=== PATIENT | female | born 1975 | race Caucasian/White ===

== ENCOUNTER 2019-02-12 16:48 | Inpatient (IN) | payer MEDICAID ==
[~2019-02-12] VITALS: Ht 162.6 cm; Wt 68.0 kg
[2019-02-12 16:48] VITALS: BP 126/71
--- NOTE | 2019-02-12 16:48 | NUR ---
PT MERCEDES BLS TO ER BED 08
[2019-02-12] MEDS ORDERED: NACL 0.9% 1,000 ML IV ONE ×2 (17:00→17:55)
[2019-02-12] MEDS ORDERED: ONDANSETRON 4 MG/2 ML VIAL IVP ONE (17:00)
[2019-02-12 17:22] LABS: BASOPHILS % (AUTO) 0.4 % (0.0-2.0); EOSINOPHILS % (AUTO) 0.7 % (0.0-4.0); HEMATOCRIT 32.3 % (36-48); HEMOGLOBIN 10.2 g/dL (12.0-16.0); LYMPHOCYTES # (AUTO) 2.4 K/uL (2.5-16.5); LYMPHOCYTES % (AUTO) 41.4 % (20.5-51.1); MEAN CORPUSCULAR HEMOGLOBIN 27 pg (27-31); MEAN CORPUSCULAR HGB CONC 32 g/dL (33-37); MEAN CORPUSCULAR VOLUME 86.5 fL (80-94); MONOCYTES # (AUTO) 0.2 K/uL (0.8-1.0); MONOCYTES % (AUTO) 3.7 % (1.7-9.3); NEUTROPHILS # (AUTO) 3.1 K/uL (1.8-7.7); NEUTROPHILS % (AUTO) 53.8 % (42.2-75.2); PLATELET COUNT (AUTO) 278 K/uL (140-450); RED BLOOD CELL COUNT(AUTO) 3.73 MIL/uL (4.20-5.40); RED CELL DISTRIBUTION WIDTH 21.8 % (11.6-13.7); WHITE BLOOD COUNT (AUTO) 5.8 K/uL (4.8-10.8)
--- NOTE | 2019-02-12 17:25 | NUR ---
PT BIB AMBULANCE FOR ETOH INTOXICATION. PT WAS FOUND OUTSIDE THE [facility]. STATES SHE HAS BEEN DRINKING ALL DAY, STARTED WITH WINE AND VODKA, THEN BEER. PT STATES SHE IS NAUSEOUS, GENERALIZED ABD PAIN. PT RESTING WITH EYES CLOSED IN BED. PT SAYS SHE HAS BEEN DRINKING FOR MONTHS BECAUSE SHE "DOESNT LIKE HER LIFE". NO SUICIDAL IDEATION AT THIS TIME. EVEN AND UNLABORED RESPIRATIONS. VSS MEDHX: HTN RX: LISINOPRIL ALLERGIES: VICODIN
[2019-02-12 17:36] LABS: ANION GAP 13.3 (8-16); CARBON DIOXIDE 26.5 mmol/L (21-32); CREATININE 0.7 mg/dL (0.6-1.3); POTASSIUM 3.8 mmol/L (3.5-5.1)
[2019-02-12 17:44] LABS: ALBUMIN 2.5 g/dL (3.4-5.0); TOTAL BILIRUBIN 0.3 mg/dL (0.0-1.0)
[2019-02-12 17:58] LABS: APPEARANCE,URINE CLEAR (CLEAR); BILIRUBIN,URINE NEGATIVE (NEGATIVE); BLOOD, URINE NEGATIVE (NEGATIVE); COLOR,URINE YELLOW (YELLOW); LEUKOCYTE ESTERASE ,URINE NEGATIVE (NEGATIVE); NITRITE, URINE NEGATIVE (NEGATIVE); UGLUCOSE NEGATIVE (NEGATIVE)
--- NOTE | 2019-02-12 18:08 | NUR ---
pt resting in bed with eyes closed at this time. vss.
[2019-02-12 18:16] LABS: BARBITURATE, URINE NEGATIVE ng/ml (NEG <=200); BENZODIAZEPINE, URINE NEGATIVE ng/mL (NEG <=200); CANNABINOID, URINE NEGATIVE ng/mL (NEG <=50); COCAINE, URINE NEGATIVE ng/mL (NEG <=300); OPIATE, URINE NEGATIVE ng/mL (NEG <=2000); PHENCYCLIDINE SCREEN,URINE NEGATIVE ng/mL (NEG <=25)
[2019-02-12] MEDS ORDERED: LORazepam 2 MG/ML VIAL IVP PRN (19:15)
[2019-02-12] MEDS ORDERED: ONDANSETRON 4 MG/2 ML VIAL IVP PRN (19:15)
--- NOTE | 2019-02-12 19:20 | NUR ---
Patient will be admitted to care of DR STOCKTON. Admited to [facility]. Will go to room 107B. Belongings list completed. Report to MAXIM BELLO.
--- NOTE | 2019-02-12 19:25 | NUR ---
RECEIVED FROM ER PER EMILIE WU AND MARGARET. ABLE TO VERBALIZE NEEDS WELL IN ROMANIAN. PT. AT THIS TIME CAN VERBALIZE NEEDS WELL. IVF SITE TO LEFT HAND # 20. INTACT AND NO INFILTRATION. WITH GOOD BLOOD RETURN. ROM X 4. SKIN INTACT. CAR PLANS FOR THE NIGHT DISCUSSED WITH HER. CALL LIGHT WITH IN REACH. ROM X 4. SEEN WALK INDEPENDENTLY FROM BED AT THE DOOR TO BED B IN HER ROOM. ORIENTED TO CALL LIGHT USE AND ROOM.
[2019-02-12 20:07] LABS: FREE T4 (FREE THYROXINE) 0.86 ng/dL (0.76-1.46); MAGNESIUM 1.6 mg/dL (1.8-2.4); PHOSPHORUS 4.6 mg/dL (2.5-4.9); THYROID STIMULATING HORMONE 1.03 uIU/mL (0.34-3.74)
[2019-02-12] MEDS: DOCUSATE SODIUM 100 MG GELCAP PO SCH (21:28)
--- NOTE | 2019-02-12 21:39 | NUR ---
CXR TECH IN HERE AND ASSISTED BY A FEMALE NOCTURNIST. NO COMPLAINTS DONE. CALL LIGHT WITH IN REACH.
[2019-02-12 21:45] VITALS: BP 98/78
[2019-02-12] MEDS ORDERED: MAG SULF 2000 MG/WATER PREMIX 100 ML IV SCH (23:00)
[2019-02-12] MEDS ORDERED: cefTRIAXone 1,000 MG VIAL ONE (23:43)
[2019-02-12] MEDS: NACL 0.9% 1,000 ML IV SCH (23:50)
--- NOTE | 2019-02-13 00:11 | NUR ---
PT. SLEEPING WELL. NO COMPLAINTS DONE. WAKES UP EASILY WHEN TOUCHED OR CALLED BY NAME. VERBALIZES NEEDS WELL. NO NOTED ADVERSE REACTION TO ROCEPHIN 1 GM IVP INFUSING.
[2019-02-13 00:20] VITALS: BP 116/72
--- NOTE | 2019-02-13 01:51 | NUR ---
SLEEPING WELL. BED ALARM ON. CALL LIGHT WITH IN REACH.
--- NOTE | 2019-02-13 03:50 | NUR ---
SECOND BAG OF MAGNESIUM SULFATE 2 GM INFUSING ORDERED FOR TOTAL OF 4GMS. CHARGE NURSE AWARE.
--- NOTE | 2019-02-13 06:18 | NUR ---
PT. SLEEPING AT THIS TIME. NO COMPLAINTS DONE THIS SHIFT. NO TREMORS NOTED FROM ALCOHOL INTAKE. NO ALLERGIC REACTIONS FROM IV ABT ADMINISTERED. ABLE TO VERBALIZE NEEDS WELL. ROM X 4. SEEN WALKING TO RESTROOM WELL. STANDBY ASSIST BY SENIOR WEB ENGINEER. WILL ENDORSE TO AM RN FOR CONTINUITY OF CARE.
[2019-02-13 07:06] LABS: BASOPHILS % (AUTO) 0.5 % (0.0-2.0); EOSINOPHILS % (AUTO) 0.8 % (0.0-4.0); HEMATOCRIT 29.7 % (36-48); HEMOGLOBIN 9.5 g/dL (12.0-16.0); LYMPHOCYTES # (AUTO) 1.4 K/uL (2.5-16.5); LYMPHOCYTES % (AUTO) 26.1 % (20.5-51.1); MEAN CORPUSCULAR HEMOGLOBIN 28 pg (27-31); MEAN CORPUSCULAR HGB CONC 32 g/dL (33-37); MEAN CORPUSCULAR VOLUME 86.2 fL (80-94); MONOCYTES # (AUTO) 0.3 K/uL (0.8-1.0); MONOCYTES % (AUTO) 4.9 % (1.7-9.3); NEUTROPHILS # (AUTO) 3.7 K/uL (1.8-7.7); NEUTROPHILS % (AUTO) 67.7 % (42.2-75.2); PLATELET COUNT (AUTO) 208 K/uL (140-450); RED BLOOD CELL COUNT(AUTO) 3.45 MIL/uL (4.20-5.40); RED CELL DISTRIBUTION WIDTH 21.3 % (11.6-13.7); WHITE BLOOD COUNT (AUTO) 5.4 K/uL (4.8-10.8)
[2019-02-13 07:07] LABS: ANION GAP 12.6 (8-16); CARBON DIOXIDE 25.9 mmol/L (21-32); CREATININE 0.5 mg/dL (0.6-1.3); POTASSIUM 3.5 mmol/L (3.5-5.1)
--- NOTE | 2019-02-13 07:20 | NUR ---
RECEIVED REPORT FROM GRANTS ADMINISTRATOR NURSE AT BEDSIDE FOR CONTINUITY OF CARE. PATIENT AOX4, ABLE TO VERBALIZE NEEDS WELL IN URDU, AMBULATES ON STEADY GAIT. IV SITE TO LEFT HAND # 20, INTACT, ASYMPTOMATIC, AND PATENT, INFUSING IVF WELL. SKIN INTACT. PATIENT DENIES PAIN, RESPIRATIONS EVEN AND UNLABORED ON ROOM AIR. UPDATED BOARD. CARE PLANS DISCUSSED WITH PATIENT, SHE VERBALIZED UNDERSTANDING. CALL LIGHT WITH IN REACH. WILL CONTINUE TO MONITOR PATIENT.
[2019-02-13 07:36] LABS: MAGNESIUM 2.1 mg/dL (1.8-2.4); PHOSPHORUS 2.8 mg/dL (2.5-4.9)
[2019-02-13] MEDS: DOCUSATE SODIUM 100 MG GELCAP PO SCH ×2 (08:40→21:41)
[2019-02-13] MEDS: THIAMINE 100 MG TAB PO SCH (08:41)
[2019-02-13] MEDS: MULTIVITAMIN 1 TAB PO SCH (08:41)
[2019-02-13] MEDS: FOLIC ACID 1 MG TAB PO SCH (08:41)
[2019-02-13] MEDS: chlordiazePOXIDE 25 MG CAP PO SCH ×3 (08:41→17:12)
--- NOTE | 2019-02-13 08:49 | NUR ---
ORDERED MEDICATIONS GIVEN. PATIENT TOLERATED THEM WELL. PATIENT REFUSING COLACE AT THE MOMENT, STATED SHE HAD BM EARLY THIS MORNING. EDUCATED HER ABOUT INDICATIONS AND BENEFITS, PATIENT VERBALIZED UNDERSTANDING BUT REITERATED HER REFUSAL. PATIENT AMBULATED ON STEADY GAIT TO BATHROOM AND BACK TO BED. ALL NEEDS MET AT THIS TIME. CALL LIGHT WITHIN REACH, WILL CONTINUE TO MONITOR PATIENT.
[2019-02-13] MEDS ORDERED: MULTIVITAMIN-12 10 ML, THIAMINE 100 MG, MAGNESIUM SULFATE 50% 2,000 MG, FOLIC ACID 1 MG... IV SCH ×5 (09:00)
--- NOTE | 2019-02-13 09:15 | NUR ---
PT C/O OF NAUSEA, OFFERED HER ZOFRAN PRN. SHE REFUSED, STATING "NOT AT THIS TIME". RN VERBALIZED UNDERSTANDING. ALL NEEDS MET AT THIS TIME. CALL LIGHT WITHIN REACH. WILL CONTINUE TO MONITOR PATIENT.
[2019-02-13 10:01] LABS: CHOL/HDL RATIO 2.6 (1-4.5)
--- NOTE | 2019-02-13 12:28 | NUR ---
ORDERED MEDICATION GIVEN. PATIENT TOLERATED IT WELL. PATIENT CURRENTLY SITTING UP IN BED EATING LUNCH, NO COMPLAINTS AT THIS TIME. PATIENT STATE'S NAUSEA IS "BETTER THAN THIS MORNING". CALL LIGHT WITHIN REACH, WILL CONTINUE TO MONITOR PATIENT.
--- NOTE | 2019-02-13 14:05 | NUR ---
PATIENT RESTING IN BED, NO COMPLAINTS AT THIS TIME. WILL CONTINUE TO MONITOR PATIENT.
[2019-02-13] MEDS: NACL 0.9% 1,000 ML IV SCH (16:00)
--- NOTE | 2019-02-13 16:24 | NUR ---
SW attempted to follow up with patient. Patient was asleep and did not answer to verbal stimuli. SW will follow up with patient.
[2019-02-13 19:18] VITALS: BP 110/75
--- NOTE | 2019-02-13 19:30 | NUR ---
PATIENT REPORT GIVEN TO AD TAKER NURSE AT BEDSIDE FOR CONTINUITY OF CARE. PATIENT IN STABLE CONDITION.
--- NOTE | 2019-02-13 19:31 | NUR ---
RECD. RESTING IN BED, AWAKE, A/OX4. RESPIRATION EVEN AND UNLABORED. IV OF NS INFUSING AT 100 ML/HR, LEFT HAND G20. WATCHING TV. INDEPENDENT, AMBULATORY TO THE . PLAN OF CARE FOR THE SHIFT DISCUSSED. VERBALIZED UNDERSTANDING. DENIES PAIN 0/10.
--- NOTE | 2019-02-13 21:45 | NUR ---
REVIEWED PLAN OF CARE WITH MARILIN ALVARADO LVN.
--- NOTE | 2019-02-13 21:50 | NUR ---
SITTING ON BED, SNACK GIVEN REQUESTED.
--- NOTE | 2019-02-14 | NUR ---
SLEEPING COMFORTABLY IN BED.
[2019-02-14] MEDS: NACL 0.9% 1,000 ML IV SCH ×3 (02:00→11:36)
[2019-02-14 03:18] VITALS: BP 112/61
--- NOTE | 2019-02-14 04:00 | NUR ---
VS STABLE. NO COMPLAINT OF PAIN 0/10.
--- NOTE | 2019-02-14 06:00 | NUR ---
STILL SLEEPING IN BED, NO DISTRESS NOTED.
[2019-02-14 07:13] LABS: ANION GAP 9.1 (8-16); CARBON DIOXIDE 27.4 mmol/L (21-32); CREATININE 0.5 mg/dL (0.6-1.3); POTASSIUM 3.5 mmol/L (3.5-5.1)
--- NOTE | 2019-02-14 07:20 | NUR ---
CONDITION REMAIN STABLE. ENDORSED TO AM SHIFT NURSE FOR CONTINUITY OF CARE.
--- NOTE | 2019-02-14 08:08 | NUR ---
RECEIVED BED SIDE REPORT FROM BODY ARTIST RN. PT STABLE, A/O X4, VS STABLE. PT STATES SHE FEELS SHAKY, WILL GIVE LIBRIUM SCHEDULED NOW. LEFT HAND 20G RUNNING NS AT 100CC/HR. SKIN INTACT. LAST BM YESTERDAY. PT STATES SHE HAS 4/10 DULL ABDOMINAL PAIN. PT REFUSED PAIN MEDS AT THIS TIME. CALL LIGHT WITHIN REACH, WILL CONTINUE TO MONITOR.
[2019-02-14] MEDS: THIAMINE 100 MG TAB PO SCH (08:27)
[2019-02-14] MEDS: chlordiazePOXIDE 25 MG CAP PO SCH ×3 (08:27→16:15)
[2019-02-14] MEDS: FOLIC ACID 1 MG TAB PO SCH (08:27)
[2019-02-14] MEDS: MULTIVITAMIN 1 TAB PO SCH (08:28)
[2019-02-14] MEDS: DOCUSATE SODIUM 100 MG GELCAP PO SCH ×2 (08:28→21:08)
[2019-02-14 09:01] LABS: BASOPHILS % (AUTO) 0.4 % (0.0-2.0); EOSINOPHILS # (AUTO) 0.1 K/uL (0-0.4); EOSINOPHILS % (AUTO) 1.5 % (0.0-4.0); HEMATOCRIT 29.5 % (36-48); HEMOGLOBIN 9.3 g/dL (12.0-16.0); LYMPHOCYTES # (AUTO) 1.7 K/uL (2.5-16.5); LYMPHOCYTES % (AUTO) 46.8 % (20.5-51.1); MEAN CORPUSCULAR HEMOGLOBIN 28 pg (27-31); MEAN CORPUSCULAR HGB CONC 31 g/dL (33-37); MEAN CORPUSCULAR VOLUME 87.7 fL (80-94); MONOCYTES # (AUTO) 0.2 K/uL (0.8-1.0); MONOCYTES % (AUTO) 4.3 % (1.7-9.3); NEUTROPHILS # (AUTO) 1.7 K/uL (1.8-7.7); PLATELET COUNT (AUTO) 188 K/uL (140-450); RED BLOOD CELL COUNT(AUTO) 3.36 MIL/uL (4.20-5.40); WHITE BLOOD COUNT (AUTO) 3.6 K/uL (4.8-10.8)
--- NOTE | 2019-02-14 09:01 | NUR ---
PATIENT HAS BEEN SCREENED AND CATEGORIZED LOW NUTRITION RISK. PATIENT WILL BE SEEN WITHIN 7 DAYS OF ADMISSION. 02/19/[address]
--- NOTE | 2019-02-14 11:27 | NUR ---
PT STABLE, APPEARS IN NO DISTRESS, WILL CONTINUE TO MONITOR.
--- NOTE | 2019-02-14 12:26 | NUR ---
Discharge Planning: SW was contacted by patient's RN Mary Beth. Mary Beth stated that patient requested to see SW. SW met with patient to discuss substance use resources and homeless resources that patient has followed up with. Patient stated that she was unsuccessful finding local resources. Patient stated that a possible solution would be to return to [place] where she is from. Patient stated that she was previously receiving alcohol rehabilitation services from [facility] @ [address] [place] [address]. Patient stated that if she returns to [place], she will have adequate support systems in place and would be able to continue treatment for her alcohol use. FATMATA informed patient that SW will see if transportation to [place] is possible and will follow up with her after consulting with Rotary Drier Feeder Maria Luz. Addendum: 02/14/19 at 1626 by Sb Shelby SS FATMATA consulted with Drain Tile Press Operator Amber and Psych Specialist Aileen. A [employer]ler [employer] ticket was booked for patient from [place] to [place] along with a taxi voucher to [employer]. FATMATA provided Charge Nurse Karla lawler [employer] ticket. FATMATA informed patient and Dr. Chapin. Dr. Chapin stated that tentative discharge time would be at 9:00am. Patient verbalized appreciation and understanding. FATMATA/CM will follow up as needed.
[2019-02-14 13:53] LABS: BARBITURATE, URINE NEG. ng/ml (NEG <=200); BENZODIAZEPINE, URINE POS. ng/mL (NEG <=200); CANNABINOID, URINE NEG. ng/mL (NEG <=50); COCAINE, URINE NEG. ng/mL (NEG <=300); OPIATE, URINE NEG. ng/mL (NEG <=2000); PHENCYCLIDINE SCREEN,URINE NEG. ng/mL (NEG <=25)
[2019-02-14 15:29] VITALS: BP 124/70
--- NOTE | 2019-02-14 15:41 | NUR ---
PT AMBULATED TO TAKE SHOWER. PT STABLE.
--- NOTE | 2019-02-14 19:18 | NUR ---
GAVE BED SIDE REPORT TO VASCULAR NEUROLOGIST RN. PT STABLE.
--- NOTE | 2019-02-14 19:20 | NUR ---
RECEIVED FROM AM RN IN BED AND SLEEPING AT THIS TIME. PT. ABLE TO VERBALIZE NEEDS WELL IN NAMIBIAN WHEN AWAKE. FOR D/C PLANNING TOMORROW . DX. OF TOXIC ENCEPHALOPATHY. CALL LIGHT WITH IN REACH.
--- NOTE | 2019-02-14 22:35 | NUR ---
PT. AWAKE AND REQUESTED FOR SNACK. PROVIDED WITH JUICE AND SANDWICH. ABLE TO VERBALIZE NEEDS WELL. NO SOB. NO PAIN COMPLAINTS DONE.
[2019-02-15 00:40] VITALS: BP 118/70
--- NOTE | 2019-02-15 00:42 | NUR ---
PT. NO COMPLAINTS . SLEEPING WELL. CALL LIGHT WITH IN REACH. INDEPENDENT WHEN AMBULATING.
[2019-02-15] MEDS: NACL 0.9% 1,000 ML IV SCH (01:13)
[2019-02-15 07:00] LABS: BASOPHILS % (AUTO) 0.4 % (0.0-2.0); EOSINOPHILS # (AUTO) 0.1 K/uL (0-0.4); EOSINOPHILS % (AUTO) 1.3 % (0.0-4.0); HEMATOCRIT 30.6 % (36-48); HEMOGLOBIN 9.8 g/dL (12.0-16.0); LYMPHOCYTES # (AUTO) 1.5 K/uL (2.5-16.5); LYMPHOCYTES % (AUTO) 34.3 % (20.5-51.1); MEAN CORPUSCULAR HEMOGLOBIN 28 pg (27-31); MEAN CORPUSCULAR HGB CONC 32 g/dL (33-37); MEAN CORPUSCULAR VOLUME 86.6 fL (80-94); MONOCYTES # (AUTO) 0.2 K/uL (0.8-1.0); MONOCYTES % (AUTO) 5.2 % (1.7-9.3); NEUTROPHILS # (AUTO) 2.5 K/uL (1.8-7.7); NEUTROPHILS % (AUTO) 58.8 % (42.2-75.2); PLATELET COUNT (AUTO) 212 K/uL (140-450); RED BLOOD CELL COUNT(AUTO) 3.53 MIL/uL (4.20-5.40); WHITE BLOOD COUNT (AUTO) 4.3 K/uL (4.8-10.8)
--- NOTE | 2019-02-15 07:09 | NUR ---
ENDORSED TO THE NEXT RN FOR CONTINUITY OF CARE AWAKE AND ALERT. NO COMPLAINTS DONE.
--- NOTE | 2019-02-15 07:10 | NUR ---
PT RECEIVED FROM NIGHT RNMAXIM. PT IN BED AAOX4. NO SIGNS OF ACUTE DISTRESS AT THIS TIME. WILL CONTINUE CARE
[2019-02-15 07:18] LABS: ANION GAP 10.7 (8-16); CARBON DIOXIDE 28.2 mmol/L (21-32); CREATININE 0.5 mg/dL (0.6-1.3); POTASSIUM 3.9 mmol/L (3.5-5.1)
[2019-02-15 08:00] VITALS: BP 115/65
[2019-02-15] MEDS: MULTIVITAMIN 1 TAB PO SCH (08:11)
[2019-02-15] MEDS: THIAMINE 100 MG TAB PO SCH (08:11)
[2019-02-15] MEDS: DOCUSATE SODIUM 100 MG GELCAP PO SCH (08:12)
[2019-02-15] MEDS: FOLIC ACID 1 MG TAB PO SCH (08:12)
--- NOTE | 2019-02-15 08:15 | NUR ---
PT RECEIVED MORNING MEDICATIONS AND INFORMED OF PENDING DISCHARGE.
[2019-02-15 08:39] VITALS: BP 115/65
[2019-02-15] MEDS ORDERED: chlordiazePOXIDE 25 MG CAP PO SCH (09:00)
--- NOTE | 2019-02-15 10:00 | NUR ---
PT RECEIVED DISCHARGE INSTRUCTIONS WITH DISCHARGE PACKED. PT VERBALIZED UNDERSTANDING REGARDING NOT DRINKING ALCOHOL AND FOLLOW UP WITH PCP WITHIN 5-7 DAYS AFTER DISCHARGE. 22G IV TO L WRIST REMOVED, CATHETER INTACT. PT WALKED OFF UNIT WITH FRIEND TO TAXI. TAXI VOUCHER GIVEN TO ADMISSIONS GATE ATTENDANT. PT RECEIVED TWO BUS VOUCHERS TO GET HOME TO [facility], PAPER COPIES IN PAPER CHART. PT STABLE AND ALERT AND ORIENTED AT DISCHARGE.
== END 2019-02-15 10:00 | disposition home or self-care (01) | DRG 816 ==
LOC: MED 16:48 → MTU 18:53
PROVIDERS: ADMIT General Practice; ATTEND General Practice
DX: T51.0X1A Toxic effect of ethanol, accidental (unintentional), initial encounter (principal); E43 Unspecified severe protein-calorie malnutrition; G92 Toxic encephalopathy; K76.0 Fatty (change of) liver, not elsewhere classified; E86.0 Dehydration; F10.129 Alcohol abuse with intoxication, unspecified; E83.42 Hypomagnesemia; E88.09 Other disorders of plasma-protein metabolism, not elsewhere classified; Y90.8 Blood alcohol level of 240 mg/100 ml or more; I10 Essential (primary) hypertension; D64.9 Anemia, unspecified; D72.819 Decreased white blood cell count, unspecified; N39.0 Urinary tract infection, site not specified; Z88.8 Allergy status to other drugs, medicaments and biological substances; Z59.0 Homelessness; Z90.49 Acquired absence of other specified parts of digestive tract; Z98.51 Tubal ligation status
CPT/HCPCS: 36415; 71045; 76705; 80048; 80053; 80305; 81003; 82150; 83036; 83690; 83735; 83880; 84100; 84439; 84443; 84484; 85025; 85610; 85730; 87081; 93005; 96361; 96374; 99285; A9153; G0482; J0696; J2405; J3411; J3475; J3490; J7030; J7060; Q0092

== ENCOUNTER 2019-11-13 20:39 | Emergency (ER) | payer MEDICAID ==
[~2019-11-13] VITALS: Ht 167.6 cm; Wt 68.0 kg
[2019-11-13 20:46] VITALS: BP 122/81
[2019-11-13] MEDS ORDERED: NACL 0.9% 1,000 ML IV ONE (20:55)
--- NOTE | 2019-11-13 21:16 | NUR ---
BIBA TO ER BED 11
[2019-11-13] MEDS ORDERED: ONDANSETRON 4 MG/2 ML VIAL IVP ONE (21:25)
--- NOTE | 2019-11-13 21:45 | NUR ---
44 Y/O FEMALE BIB ALS. PER ALS PT HAS GENERALIZED WEAKNESS, AND ETOH INTOXICATION. 0/10 PAIN VERBALIZED. PT DENIES NAUSEA, VOMITING, DIARRHEA. PT STATES "I'M TO DRUNK TO DO THIS, CUT THE LIGHT OFF." VSS, R/R EQUAL, AND UNLABORED. ALLERGY: ACETAMINOPHEN, HYDROCODONE DENIES PMH
[2019-11-13 21:59] LABS: BASOPHILS % (AUTO) 0.5 % (0.0-2.0); EOSINOPHILS # (AUTO) 0.1 K/uL (0-0.4); EOSINOPHILS % (AUTO) 1.6 % (0.0-4.0); HEMATOCRIT 32.4 % (36-48); HEMOGLOBIN 10.1 g/dL (12.0-16.0); LYMPHOCYTES # (AUTO) 1.8 K/uL (2.5-16.5); LYMPHOCYTES % (AUTO) 42.5 % (20.5-51.1); MEAN CORPUSCULAR HEMOGLOBIN 27 pg (27-31); MEAN CORPUSCULAR HGB CONC 31 g/dL (33-37); MEAN CORPUSCULAR VOLUME 86.5 fL (80-94); MONOCYTES # (AUTO) 0.2 K/uL (0.8-1.0); MONOCYTES % (AUTO) 4.5 % (1.7-9.3); NEUTROPHILS # (AUTO) 2.1 K/uL (1.8-7.7); NEUTROPHILS % (AUTO) 50.9 % (42.2-75.2); PLATELET COUNT (AUTO) 201 K/uL (140-450); RED BLOOD CELL COUNT(AUTO) 3.75 MIL/uL (4.20-5.40); RED CELL DISTRIBUTION WIDTH 25.3 % (11.6-13.7); WHITE BLOOD COUNT (AUTO) 4.2 K/uL (4.8-10.8)
--- NOTE | 2019-11-13 22:00 | NUR ---
PLACED 20G IN RIGHT FOREARM. MEDICATION, AND FLUIDS ADMINISTERED PT TOLERATED PROCEDURE WELL.
[2019-11-13 23:10] LABS: ALBUMIN 2.5 g/dL (3.4-5.0); ANION GAP 18.3 (8-16); CARBON DIOXIDE 23.2 mmol/L (21-32); CREATININE 0.7 mg/dL (0.6-1.3); POTASSIUM 3.5 mmol/L (3.5-5.1); TOTAL BILIRUBIN 0.4 mg/dL (0.0-1.0)
[2019-11-14 02:05] VITALS: BP 127/78
--- NOTE | 2019-11-14 02:05 | NUR ---
Patient discharged with v/s stable. Written and verbal after care instructions given and explained. Patient verbalized understanding. Ambulatory with steady gait. All questions addressed prior to discharge. Advised to follow up with PMD. Pt h/l d/c.
== END 2019-11-14 02:05 | disposition home or self-care (01) ==
LOC: MED 20:39
DX: F10.129 Alcohol abuse with intoxication, unspecified (principal); I10 Essential (primary) hypertension; Z88.6 Allergy status to analgesic agent; Z88.5 Allergy status to narcotic agent; Y90.8 Blood alcohol level of 240 mg/100 ml or more
CPT/HCPCS: 36415; 80053; 85025; 96374; 99283; G0482; J2405; J7030